=== PATIENT | female | born 1960 | race Caucasian/White ===

== ENCOUNTER 2018-11-23 07:50 | Day surgery (SDC) | payer BC ==
[~2018-11-23 07:50] MED LIST: Albuterol 0.083% 2.5 MG/3 ML Neb Soln NEB SCH; Lactated Ringers 1,000 ML IV SCH; Lidocaine 1% 4 ML ONE; Lidocaine 1%/Sod Bicarbonate in NS 8.4% 1 ML Syringe IDERM PRN; Midazolam 1 MG/ML 2 ML SDV ONE; Ondansetron 4 MG/2 ML SDV ONE; Propofol 200 MG/20 ML SDV ONE; Rocuronium 50 MG/5 ML Vial ONE; Sodium Chloride 0.9% 10 ML Syringe FLUSH PRN; ceFAZolin 1 GM Vial ONE; fentaNYL 250 MCG/5 ML SDV ONE
[2018-11-23] MEDS ORDERED: Lidocaine 1% with EPINEPHrine 1:100,000 20 ML MDV ONE (07:59)
[2018-11-23] MEDS ORDERED: Sodium Chloride 0.9% 50 ML SDV ONE (07:59)
[2018-11-23] MEDS ORDERED: Scopolamine 1.5 MG Transdermal Patch TOP ONE (08:04)
--- NOTE | 2018-11-23 08:06 | PCM.PREANE ---
Preanesthetic Assessment - Procedure Proposed Procedure: tvh with bso - Anesthesia/Transfusion/Family Hx Anesthesia History: Prior Anesthesia Without Reaction Family History of Anesthesia Reaction: No Transfusion History: No Prior Transfusion(s) - Review of Systems General: No Symptoms Pulmonary: No Symptoms Cardiovascular: No Symptoms Gastrointestinal: No Symptoms Neurological: No Symptoms Other: Reports: Thyroid Problems, Sinus Problem (alleragies) - Physical Assessment NPO Status Date: 11/22/18 NPO Status Time: 22:30 Vital Signs: 57 95% 147/71 97.1 Height: 5 ft 3 in Weight: 79 kg ASA Class: 2 Mental Status: Alert & Oriented x3 Airway Class: Mallampati = 1 Dentition: Reports: Normal Dentition Thyro-Mental Finger Breadths: 3 Mouth Opening Finger Breadths: 3 ROM/Head Extension: Full Lungs: Clear to Auscultation, Normal Respiratory Effort Cardiovascular: Regular Rate, Regular Rhythm - Allergies Allergies/Adverse Reactions: Allergies Allergy/AdvReac Type Severity Reaction Status Date / Time Sulfa (Sulfonamide Allergy Other Verified 11/22/18 12:34 Antibiotics) - Blood Blood Available: No - Acknowledgements Anesthesia Type Planned: General Anesthesia Pt an Appropriate Candidate for the Planned Anesthesia: Yes Alternatives and Risks of Anesthesia Discussed w Pt/Guardian: Yes Pt/Guardian Understands and Agrees with Anesthesia Plan: Yes PreAnesthesia Questionnaire HEENT History: Reports: Allergic Rhinitis, Impaired Vision Respiratory History: Reports: None Gastrointestinal History: Reports: GERD Genitourinary History: Reports: UTI, Recurrent, Other (See Below) Other Genitourinary History: Stress incontinence 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) Other OB/BYN History: Hot flashes, postmenopausal bleeding, yeast vaginitis, bacterial vaginosis Musculoskeletal History: Reports: Arthritis Neurological History: Reports: None Psychiatric History: Reports: None Endocrine/Metabolic History: Reports: Hypothyroidism, Vitamin D Deficiency Hematologic History: Reports: None Immunologic History: Reports: None Oncologic (Cancer) History: Reports: None Dermatologic History: Reports: None - Past Surgical History Head Surgeries/Procedures: Reports: None HEENT Surgical History: Reports: None Cardiovascular Surgical History: Reports: None Respiratory Surgical History: Reports: None GI Surgical History: Reports: None, Colonoscopy Female Surgical History: Reports: Tubal Ligation Endocrine Surgical History: Reports: None Neurological Surgical History: Reports: None Musculoskeletal Surgical History: Reports: Other (See Below) Other Musculoskeletal Surgeries/Procedures:: Lower leg fracture with repair at age 7 (no hardware placed) Oncologic Surgical History: Reports: None Dermatological Surgical History: Reports: None - SUBSTANCE USE Smoking Status *Q: Never Smoker Tobacco Use Within Last Twelve Months: No Second Hand Smoke Exposure: Yes Days Per Week of Alcohol Use: 1 Number of Drinks Per Day: 2 Total Drinks Per Week: 2 Recreational Drug Use History: No - HOME MEDS Home Medications: Home Meds Calcium Carbonate/Vitamin D3 [Calcium 600 + D3 Softgel] 1 tab PO BID 11/22/18 [ History] Cholecalciferol (Vitamin D3) [Vitamin D3] 1,000 unit PO DAILY 11/22/18 [History] Estradiol 0.075 mg TRDERM TUFR 11/22/18 [History] Fexofenadine [Nelly] 180 mg PO DAILY 11/22/18 [History] Fish Oil/[place]-3 Fatty Acids [Fish Oil 1,000 MG] 1,000 mg PO DAILY 11/22/18 [ History] Levothyroxine 25 mcg PO ACBREAKFAST 11/22/18 [History] Montelukast [Singulair] 10 mg PO DAILY 11/22/18 [History] Omeprazole Magnesium [Prilosec Otc] 20 mg PO DAILY 11/22/18 [History] Triamcinolone Acetonide [Nasacort AQ [place]] 2 spray CRISTIANO DAILY 11/22/18 [History] - CURRENT (IN HOUSE) MEDS Current Meds: Current Medications Albuterol (Proventil Neb Soln) 2.5 mg NEB ONETIME SERGEY Stop: 11/23/18 18:00 Lactated Ringer's (Ringers, Lactated) 1,000 mls @ 125 mls/hr IV ASDIRECTED SERGEY Stop: 11/23/18 23:00 Lidocaine/Sodium Bicarbonate (Buffered Lidocaine 1% In Ns 8.4%) 0.25 ml IDERM ONETIME PRN PRN Reason: Prior to IV Start Stop: 11/23/18 18:00 Sodium Chloride (Saline Flush) 10 ml FLUSH ASDIRECTED PRN PRN Reason: Keep Vein Open Stop: 11/23/18 18:00 Discontinued Medications Cefazolin Sodium (Ancef) Confirm Administered Dose 2 gm .ROUTE .STK-MED ONE Stop: 11/23/18 07:49 Fentanyl (Sublimaze) Confirm Administered Dose 250 mcg .ROUTE .STK-MED ONE Stop: 11/23/18 07:44 Lidocaine HCl (Xylocaine-Mpf 1%) Confirm Administered Dose 4 mls @ as directed .ROUTE .STK-MED ONE Stop: 11/23/18 07:43 Midazolam HCl (Versed 1 Mg/Ml) Confirm Administered Dose 2 mg .ROUTE .STK-MED ONE Stop: 11/23/18 07:44 Ondansetron HCl (Zofran) Confirm Administered Dose 4 mg .ROUTE .STK-MED ONE Stop: 11/23/18 07:43 Propofol (Diprivan 20 Ml) Confirm Administered Dose 200 mg .ROUTE .STK-MED ONE Stop: 11/23/18 07:43 Rocuronium [place] (Zemuron) Confirm Administered Dose 50 mg .ROUTE .STK-MED ONE Stop: 11/23/18 07:43
[2018-11-23] MEDS ORDERED: Dexamethasone 4 MG/ML 5 ML MDV ONE (08:50)
[2018-11-23] MEDS ORDERED: diphenhydrAMINE 50 MG/ML SDV ONE (08:50)
[2018-11-23] MEDS ORDERED: HYDROmorphone 0.5 MG/0.5 ML Syringe ONE (09:04)
[2018-11-23] MEDS ORDERED: Neostigmine Methylsulfate 1 MG/ML 5 ML Syringe ONE (09:18)
[2018-11-23] MEDS ORDERED: Atropine 0.4 MG/ML SDV ONE (09:25)
[2018-11-23] MEDS ORDERED: Lactated Ringers 1,000 ML ONE (09:31)
[2018-11-23] MEDS ORDERED: fentaNYL 100 MCG/2 ML SDV ONE (09:39)
--- NOTE | 2018-11-23 10:13 | PCM.SN ---
- Free Text/Narrative Note: Postoperative procedure note: - General Post-Op/Procedure Note Date of Surgery/Procedure: 11/23/18 Operative Procedure(s): 1. Total vaginal cystectomy with bilateral salpingo- oophorectomy. 2. subfascial mid-urethral sling procedure Findings: Patient had small to medium size uterus for postmenopausal female. Ovaries were streak ovaries bilaterally. Fallopian tubes had some scarring which. Almost consistent on the right side with a tubal ligation. She has a grade 1-2 cystocele. Minimal rectocele noted. Cervix is multiparous in appearance. Endometrial cavity appeared mildly thickened but otherwise without significant defect. Pre Op Diagnosis: 1. Postmenopausal uterine bleeding. 2. Thickened endometrium. 3. Stress urinary incontinence Post-Op Diagnosis: Same Anesthesia Technique: General ET Tube Other Anesthesia Type: Lidocaine quarter percent with [id number] mL total local Primary Surgeon: Jimbo Kruger Secondary Surgeon: Osvaldo Sterling Anesthesia Provider: Power Maldonado Hot Cell Technician: Brielle Agrawal Reason Hot Cell Technician Was Necessary: Retraction, assistance, patient safety, quality of care Pathology: Uterus, tubes and ovaries in one specimen container. Fluid Replacement, Intraop: 1,200 Output, Urine Amount: 100 EBL in mLs: 25 Drain/Tube Comments:: Red rubber catheter used to drain and then fill bladder during surgery Complications: None Condition: Good Free Text/Narrative:: Surgery duration: 45 minutes Procedure: The patient was placed in supine position on the operating table. She was appropriately consented. She voided on the way back to the operating room. General endotracheal anesthesia was accomplished. After positioning, and adequate prep and drape, the procedure was then performed. Sterile speculum was placed in the vagina and cervix was visualized. Cervix was injected with [ lidocaine quarter percent with epinephrine]. [20 cc] used. A full circumference incision was made in the cervical epithelium. The bladder was pushed well back off cervix. Posterior cul-de-sac was then entered sharply without problems. Left uterosacral was crossclamped with a Enseal vessel closure system. The left uterosacral and then the right uterosacral ligament pedicles were developed using the Enseal system. The anterior cul-de-sac was then entered without problems and the uterine vasculature, cardinal ligament and broad ligament then developed using Enseal vessel closure system. The uterus was inverted at this time and upper broad ligament fallopian tube pedicles were crossclamped with Lonny clamps. Specimen was totally removed. Both these pedicles were then secured with a Lonny stitch of #1 Vicryl. Left and right fallopian tremor then visualized and grasped with Delaney clamps. The ovaries were found to be streak ovaries and were occluded in the [place] clamp with fallopian tubes. Using a #1 Vicryl suture each these pedicles was then developed. Hemostasis was confirmed at this time. Both fallopian tubes and ovaries were effectively removed. The posterior vaginal cuff was run with an 0 Monocryl suture from approximately 2:00 to 10 o'clock position for hemostatic reasons. The patient was found to be hemostatically intact at this time, both ovaries appeared normal and were left in place. Vaginal cuff was closed with running locked suture of 0 Monocryl. Sub-Fascial, mid urethral sling procedure was then performed. Her bladder was drained with a red rubber catheter. A normal colored urine was removed. The epithelium overlying the urethra was grasped approximately 1 cm from the urethral meatus and approximately 2 cm cephalad from there with Allis clamps. The area of the skin overlying the medial aspect of the obturator foramen on each side just posterior to the origin the abductor longus muscle was marked with a marking pen. These 2 areas and the sub-fascial layer of the vaginal were then infiltrated with lidocaine quarter percent with epinephrine total of approximately 10 mL was used. incisions made in the epithelium overlying the urethra and 2 small stab wounds 3 mm in length were made in the 2 areas of the panty line of the patient. The subfascial planes were adequately dissected bilaterally to allow placement of the mesh. The helical adapter was then placed through the obturator on patient's left side and brought out through the vaginal subfascial plane. Mesh was attached to it and then was pulled back through the obturator foramen. Same was done on the right side. Mesh was then snugged up to the urethra. A Heger Dilator 15 mm in diameter was used as a spacer to place the mesh in a tension- free position. At this point the mesh was cut off at the skin surface and the dilator was removed. The midline epithelium was closed with a short running suture of 3-0 Monocryl. Skin incisions were closed with Dermabond skin glue. These bladder was filled with approximately 240 cc of normal saline to facilitate voiding and therefore discharge home. The patient was returned to supine position, awakened from general endotracheal anesthesia and was discharged from operating room in good.
[2018-11-23] MEDS ORDERED: Ketorolac 30 MG/ML SDV IVPUSH SCH (10:15)
[2018-11-23] MEDS ORDERED: Ondansetron 4 MG/2 ML SDV IVPUSH PRN ×2 (10:15→10:28)
[2018-11-23] MEDS ORDERED: Acetaminophen/oxyCODONE 325-5 MG Tab PO PRN (10:15)
[2018-11-23] MEDS ORDERED: Ibuprofen 600 MG Tab PO PRN (10:15)
--- NOTE | 2018-11-23 10:27 | PCM.POSTAN ---
POST ANESTHESIA ASSESSMENT - MENTAL STATUS Mental Status: Alert, Somnolent - VITAL SIGNS Vital Signs: Last Vital Signs Temp 97.1 F 11/23/18 07:57 Pulse 57 L 11/23/18 07:57 Resp 16 11/23/18 07:57 BP 147/71 H 11/23/18 07:57 Pulse Ox 97 11/23/18 07:57 140/79 76 12 96% 97.7 - RESPIRATORY Respiratory Status: Respiratory Rate WNL, Airway Patent, O2 Saturation Stable, Supplemental Oxygen - CARDIOVASCULAR CV Status: Pulse Rate WNL, Blood Pressure Stable - GASTROINTESTINAL GI Status: No Symptoms - PAIN Pain Score: 0 - POST OP HYDRATION Hydration Status: Adequate & Stable
[2018-11-23] MEDS ORDERED: fentaNYL 100 MCG/2 ML SDV IVPUSH PRN (10:28)
[2018-11-23] MEDS ORDERED: HYDROmorphone 0.5 MG/0.5 ML Syringe IVPUSH PRN (10:28)
[2018-11-23] MEDS ORDERED: Ketorolac 30 MG/ML SDV ONE (13:03)
--- NOTE | 2018-11-23 14:26 | PCM48HPAN ---
Post Anesthesia Note - EVALUATION WITHIN 48HRS OF ANESTHETIC Vital Signs in Normal Range: Yes Patient Participated in Evaluation: Yes Respiratory Function Stable: Yes Airway Patent: Yes Cardiovascular Function Stable: Yes Hydration Status Stable: Yes Pain Control Satisfactory: Yes Nausea and Vomiting Control Satisfactory: Yes Mental Status Recovered: Yes (visited with patient prior to leaving the hospital. No complaints) Vital Signs: Last Vital Signs Temp 96.6 F 11/23/18 11:15 Pulse 54 L 11/23/18 11:30 Resp 14 11/23/18 11:30 BP 129/69 11/23/18 11:30 Pulse Ox 86 L 11/23/18 11:35
== END 2018-11-23 13:15 | disposition home or self-care (01) ==
LOC: JD.SDS 07:50
PROVIDERS: ATTEND Obstetrics & Gynecology
DX: N84.0 Polyp of corpus uteri (principal); N80.0 Endometriosis of uterus; N73.6 Female pelvic peritoneal adhesions (postinfective); N83.8 Other noninflammatory disorders of ovary, fallopian tube and broad ligament; N81.10 Cystocele, unspecified; N81.6 Rectocele; N39.3 Stress incontinence (female) (male); I07.1 Rheumatic tricuspid insufficiency; E03.9 Hypothyroidism, unspecified; J45.909 Unspecified asthma, uncomplicated; K21.9 Gastro-esophageal reflux disease without esophagitis; R94.31 Abnormal electrocardiogram [ECG] [EKG]; Z88.2 Allergy status to sulfonamides; Z79.899 Other long term (current) drug therapy
CPT/HCPCS: 36415; 57288; 58262; 80053; 81001; 85025; 86850; 86900; 86901; 87086; 87088; 87186; A9270; J0461; J0690; J1100; J1170; J1200; J1885; J2001; J2250; J2405; J2704; J2710; J3010; J7120; 00944; C1771

== ENCOUNTER 2019-09-20 07:13 | Day surgery (SDC) | payer BC ==
[~2019-09-20 07:13] MED LIST changes: -Albuterol 0.083% 2.5 MG/3 ML Neb Soln NEB SCH; -Ondansetron 4 MG/2 ML SDV ONE; -Rocuronium 50 MG/5 ML Vial ONE; -ceFAZolin 1 GM Vial ONE; +fentaNYL 100 MCG/2 ML SDV ONE; -fentaNYL 250 MCG/5 ML SDV ONE
--- NOTE | 2019-09-20 07:30 | PCM.PREANE ---
Preanesthetic Assessment - Procedure Proposed Procedure: screening colonoscopy - Anesthesia/Transfusion/Family Hx Anesthesia History: Prior Anesthesia Without Reaction Family History of Anesthesia Reaction: No Transfusion History: No Prior Transfusion(s) - Review of Systems General: No Symptoms Pulmonary: No Symptoms Cardiovascular: No Symptoms Gastrointestinal: No Symptoms Neurological: No Symptoms Other: Reports: Thyroid Problems, Sinus Problem (allergies) - Physical Assessment NPO Status Date: 09/20/19 NPO Status Time: 04:30 Vital Signs: 138/65 59 96% 97.7 16 Height: 5 ft 3 in Weight: 76.7 kg ASA Class: 2 Mental Status: Alert & Oriented x3 Airway Class: Mallampati = 1 Dentition: Reports: Normal Dentition Thyro-Mental Finger Breadths: 3 Mouth Opening Finger Breadths: 3 ROM/Head Extension: Full Lungs: Clear to Auscultation, Normal Respiratory Effort Cardiovascular: Regular Rate, Regular Rhythm, No Murmurs - Allergies Allergies/Adverse Reactions: Allergies Allergy/AdvReac Type Severity Reaction Status Date / Time Sulfa (Sulfonamide Allergy Redness Verified 09/19/19 10:58 Antibiotics) - Blood Blood Available: No - Acknowledgements Anesthesia Type Planned: MAC Pt an Appropriate Candidate for the Planned Anesthesia: Yes Alternatives and Risks of Anesthesia Discussed w Pt/Guardian: Yes Pt/Guardian Understands and Agrees with Anesthesia Plan: Yes PreAnesthesia Questionnaire HEENT History: Reports: Allergic Rhinitis, Impaired Vision Cardiovascular History: Reports: None Respiratory History: Reports: Other (See Below) Other Respiratory History: reactive airway disease- patient denies Gastrointestinal History: Reports: GERD Genitourinary History: Reports: UTI, Recurrent, Other (See Below) Other Genitourinary History: Stress incontinence 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) Other OB/BYN History: Hot flashes, postmenopausal bleeding, yeast vaginitis, bacterial vaginosis Musculoskeletal History: Reports: Arthritis Neurological History: Reports: None Psychiatric History: Reports: None Endocrine/Metabolic History: Reports: Hypothyroidism, Vitamin D Deficiency Hematologic History: Reports: None Immunologic History: Reports: None Oncologic (Cancer) History: Reports: None Dermatologic History: Reports: None - Infectious Disease History Infectious Disease History: Reports: None - Past Surgical History Head Surgeries/Procedures: Reports: None HEENT Surgical History: Reports: None Cardiovascular Surgical History: Reports: None Respiratory Surgical History: Reports: None GI Surgical History: Reports: None, Colonoscopy Female Surgical History: Reports: Hysterectomy, Tubal Ligation Endocrine Surgical History: Reports: None Neurological Surgical History: Reports: None Musculoskeletal Surgical History: Reports: Other (See Below) Other Musculoskeletal Surgeries/Procedures:: Lower leg fracture with repair at age 7 (no hardware placed) Oncologic Surgical History: Reports: None Dermatological Surgical History: Reports: None - SUBSTANCE USE Smoking Status *Q: Never Smoker Tobacco Use Within Last Twelve Months: No Second Hand Smoke Exposure: Yes Days Per Week of Alcohol Use: 1 (rare) Number of Drinks Per Day: 1 Total Drinks Per Week: 1 Recreational Drug Use History: No - HOME MEDS Home Medications: Home Meds Cholecalciferol (Vitamin D3) [Vitamin D3] 1,000 unit PO DAILY 11/22/18 [History] Fish Oil/[place]-3 Fatty Acids [Fish Oil 1,000 MG] 1,000 mg PO DAILY 11/22/18 [History] Levothyroxine 25 mcg PO ACBREAKFAST 11/22/18 [History] Montelukast [Singulair] 10 mg PO DAILY 11/22/18 [History] Omeprazole Magnesium [Prilosec Otc] 20 mg PO DAILY 11/22/18 [History] Calcium Carbonate [Calcium] 1,200 mg PO DAILY 09/19/19 [History] Triamcinolone Acetonide [Nasacort] 1 dose NASBOTH BID PRN 09/19/19 [History] estradioL [Estradiol] 1 mg PO DAILY 09/19/19 [History] traZODone HCl [Trazodone HCl] 50 mg PO BEDTIME 09/19/19 [History] - CURRENT (IN HOUSE) MEDS Current Meds: Current Medications Lactated Ringer's (Ringers, Lactated) 1,000 mls @ 125 mls/hr IV ASDIRECTED SERGEY Stop: 09/20/19 23:00 Lidocaine/Sodium Bicarbonate (Buffered Lidocaine 1% In Ns 8.4%) 0.25 ml IDERM ONETIME PRN PRN Reason: Prior to IV Start Stop: 09/20/19 18:00 Sodium Chloride (Saline Flush) 10 ml FLUSH ASDIRECTED PRN PRN Reason: Keep Vein Open Stop: 09/20/19 18:00 Discontinued Medications Fentanyl (Sublimaze) Confirm Administered Dose 100 mcg .ROUTE .STK-MED ONE Stop: 09/20/19 07:12 Lidocaine HCl (Xylocaine-Mpf 1%) Confirm Administered Dose 4 mls @ as directed .ROUTE .STK-MED ONE Stop: 09/20/19 07:11 Midazolam HCl (Versed 1 Mg/Ml) Confirm Administered Dose 2 mg .ROUTE .STK-MED ONE Stop: 09/20/19 07:12 Propofol (Diprivan 20 Ml) Confirm Administered Dose 400 mg .ROUTE .STK-MED ONE Stop: 09/20/19 07:12
--- NOTE | 2019-09-20 08:46 | PCM.PRNOTE ---
- Free Text/Narrative Note: Date: 09/20/2019 Procedure: screening colonoscopy Endoscopist: Sree Bhatia MD Findings: mild excoriation/ rash around anoderm. No polyps identified. Prep was good. terminal ileum intubated. Detailed Report: The patient was taken to the endoscopy suite and placed in left lateral decubitus position. Time out was performed and monitored anesthesia care initiated. There was some minor excoriation around the anus. Digital exam was unremarkable. The colonoscope was lubricated and inserted into the anus. The sco pe was advanced to the cecum with relative ease. The appendiceal orifice was visualized. The terminal ileum was intubated. Prep was good. The scope was slowly withdrawn and mucosal surfaces carefully inspected. No polyps were identified. There was no diverticular disease. No internal hemorrhoidal disease. Air was evacuated and the scope withdrawn. The patient tolerated the procedure well.
--- NOTE | 2019-09-20 08:46 | PCM48HPAN ---
Post Anesthesia Note - EVALUATION WITHIN 48HRS OF ANESTHETIC Vital Signs in Normal Range: Yes Patient Participated in Evaluation: Yes Respiratory Function Stable: Yes Airway Patent: Yes Cardiovascular Function Stable: Yes Hydration Status Stable: Yes Pain Control Satisfactory: Yes Nausea and Vomiting Control Satisfactory: Yes Mental Status Recovered: Yes Vital Signs: Last Vital Signs Temp 97.7 F 09/20/19 07:20 Pulse 59 L 09/20/19 07:20 Resp 16 09/20/19 07:20 BP 138/65 09/20/19 07:20 Pulse Ox 96 09/20/19 07:20 0842 122/76 96% 68 12 97.3
== END 2019-09-20 09:31 | disposition home or self-care (01) ==
LOC: JD.SDS 07:13
PROVIDERS: ATTEND Surgery
DX: Z12.11 Encounter for screening for malignant neoplasm of colon (principal); K62.89 Other specified diseases of anus and rectum; K21.9 Gastro-esophageal reflux disease without esophagitis; E03.9 Hypothyroidism, unspecified; J45.909 Unspecified asthma, uncomplicated; Z88.2 Allergy status to sulfonamides; Z79.899 Other long term (current) drug therapy; Z79.890 Hormone replacement therapy
CPT/HCPCS: 45378; J2001; J2250; J2704; J3010; J7120; 00812